=== PATIENT | male | born 1970 | race African-American/Black ===

== ENCOUNTER 2023-05-01 21:42 | Emergency (ER) | payer OTHER ==
--- OUTSIDE RECORDS SUMMARY | 2023-05-01 21:44 | XMS REPORT | Continuity of Care Document ---
:1970 Author Organization [facility] t Address [address] [place] [address] [place] [id number] Care Team Providers Name Role Phone Unavailable Unavailable Unavailable Problems This patient has no known problems. Allergies, Adverse Reactions, Alerts This patient has no known allergies or adverse reactions. Medications This patient has no known medications. Procedures This patient has no known procedures. Encounters Start End Encounter Admission Attending Care Care Encounter Source Date/Time Date/Time Type Type Clinicians Facility Department ID 2023-04-21 2023-04-21 Outpatient [facility] [id number] Matthew 17:20:41 17:20:41 [id number] Carly Carver 2023-02-25 2023-02-25 Outpatient [facility] [id number] Matthew 11:14:28 11:14:28 [id number] F Mehul Results This patient has no known results.
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
[2023-05-01] MEDS ORDERED: TRAMADOL HCL 50 MG TAB ONE (22:31)
[2023-05-01] MEDS ORDERED: TDAP (DIPHTH,PERTUSS(ACELL),TET VAC) 0.5 ML VIAL IMVAC ONE (22:32)
[2023-05-01] MEDS ORDERED: SILVER SULFADIAZINE 1% 25 GM TOP ONE (22:33)
[2023-05-02] VITALS: BP 149/91; TEMP 98.2; O2SAT 98
== END 2023-05-01 23:03 | disposition home or self-care (01) ==
LOC: ER 21:42
DX: T24.201A Burn of second degree of unspecified site of right lower limb, except ankle and foot, initial encounter (principal)
CPT/HCPCS: 96372; 99284

== ENCOUNTER 2023-05-23 02:27 | Emergency (ER) | payer OTHER ==
--- OUTSIDE RECORDS SUMMARY | 2023-05-23 02:30 | XMS REPORT | Continuity of Care Document ---
:1970 Author Organization [facility] t Address [address] [facility] [address] [place] [id number] Care Team Providers Name Role Phone Unavailable [...] Clinicians Facility Department ID 2023-04-21 2023-04-21 Outpatient [facility] [id number] Matthew 17:20:41 17:20:41 [id number] F Mehul 2023-02-25 2023-02-25 Outpatient [facility] [id number] Matthew 11:14:28 11:14:28 [id number] F Mehul Results This patient has no known results.
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
[2023-05-23 03:36] VITALS: TEMP 98.4
[2023-05-23 03:37] VITALS: BP 139/95; O2SAT 99
== END 2023-05-23 03:32 | disposition home or self-care (01) ==
LOC: ER 02:27
DX: T24.401A Corrosion of unspecified degree of unspecified site of right lower limb, except ankle and foot, initial encounter (principal)
CPT/HCPCS: 99284